=== PATIENT | female | born 1985 | race African-American/Black ===

== ENCOUNTER 2020-02-07 22:59 | Emergency (ER) | payer MEDICAID ==
[~2020-02-07] VITALS: Ht 172.7 cm; Wt 121.6 kg
[2020-02-07] MEDS ORDERED: NORVASC5 M1 PO (23:30)
[2020-02-07] MEDS ORDERED: PROZAC20 M1 PO (23:30)
[2020-02-07] MEDS ORDERED: LISINOPRIL20 MG PO (23:30)
[2020-02-07] MEDS ORDERED: ZOFRAN ODT4 MG PO (23:31)
[2020-02-07] MEDS ORDERED: REGLAN 10 MG TA10 MG PO (23:31)
[2020-02-08 00:36] LABS: URINE CLARITY CLOUDY; URINE COLOR RED
[2020-02-08 00:37] LABS: URINE BILIRUBIN 1+ (Negative); URINE BLOOD 3+ (Negative); URINE GLUCOSE-RANDOM* NEGATIVE (Negative); URINE KETONES 3+ (Negative)
[2020-02-08 00:38] LABS: URINE LEUKOCYTES-REFLEX TRACE (Negative); URINE NITRITE-REFLEX POSITIVE (Negative); URINE PROTEIN (DIPSTICK) 3+ (Negative); URINE UROBILINOGEN 0.2 E.U./dl (0.2-1.0)
[2020-02-08 00:40] LABS: BACTERIA-REFLEX 1-9 Few /HPF (None Seen); SQUAMOUS 4-10 Moderate /LPF (0-3); URINE RBC >20 Many /HPF (0-2); URINE WBC-REFLEX 0-5 Rare /HPF (0-5)
[2020-02-08 00:41] LABS: CASTS None Seen /LPF (None Seen); CRYSTALS None Seen /LPF (None Seen); MUCUS 4-6 Moderate strn/LPF (None Seen)
[2020-02-08 00:48] LABS: ABSOLUTE NEUTROPHILS 5.2 thou/uL (1.4-8.2); BASOPHILS 0.2 % (0.0-2.0); HEMATOCRIT 27.9 % (37.0-47.0); HEMOGLOBIN 8.6 gm/dL (12.0-15.0); RBC 3.89 mil/uL (4.20-5.00); WBC 6.4 thou/uL (4.0-11.0)
[2020-02-08 00:50] LABS: EOSINOPHILS 0.4 % (0.0-3.0); LYMPHOCYTES 15.1 % (24.0-44.0); MCHC 30.7 g/dL (28.0-37.0); MCV 71.8 fL (80.0-100.0); MONOCYTES 3.3 % (1.0-8.0); PLATELET COUNT 293 thou/uL (150-400); RDW 18.5 % (10.5-14.5)
[2020-02-08] MEDS ORDERED: NORCO 5-325 TA1 EAC2 PO (02:43)
[2020-02-08 03:31] VITALS: BP 173/116
== END 2020-02-08 03:32 | disposition home or self-care (01) ==
LOC: ER 22:59
PROVIDERS: Emergency Medicine
DX: K31.84 Gastroparesis (principal); E86.0 Dehydration; E88.89 Other specified metabolic disorders; D50.8 Other iron deficiency anemias; Z79.899 Other long term (current) drug therapy

== ENCOUNTER 2020-02-09 15:37 | Emergency (ER) | payer MEDICAID ==
[~2020-02-09] VITALS: Ht 172.7 cm; Wt 117.9 kg
[~2020-02-09 15:37] MED LIST: LISINOPRIL20 MG PO; NORCO 5-325 TA1 EAC2 PO; NORVASC5 M1 PO; PROZAC20 M1 PO; REGLAN 10 MG TA10 MG PO; ZOFRAN ODT4 MG PO
[2020-02-09 16:41] LABS: ABSOLUTE NEUTROPHILS 3.8 thou/uL (1.4-8.2); BASOPHILS 0.9 % (0.0-2.0); EOSINOPHILS 1.1 % (0.0-3.0); HEMATOCRIT 28.4 % (37.0-47.0); HEMOGLOBIN 8.5 gm/dL (12.0-15.0); MCH 21.3 pg (26.0-34.0); MCHC 29.9 g/dL (28.0-37.0); MCV 71.2 fL (80.0-100.0); MONOCYTES 6.3 % (1.0-8.0); PLATELET COUNT 350 thou/uL (150-400); POLYS 68.7 % (36.0-66.0); RBC 3.99 mil/uL (4.20-5.00); WBC 5.6 thou/uL (4.0-11.0)
[2020-02-09 16:49] LABS: CALCIUM 9.4 mg/dL (8.5-10.1); CREATININE 0.8 mg/dL (0.6-1.0); POTASSIUM 3.5 mmol/L (3.5-5.1)
[2020-02-09 16:52] LABS: ALBUMIN 3.5 g/dL (3.4-5.0); TOTAL BILIRUBIN 0.5 mg/dL (0.2-1.0); TOTAL PROTEIN 7.5 g/dL (6.4-8.2)
[2020-02-09 17:16] VITALS: BP 182/111
[2020-02-09 17:42] LABS: ANISOCYTOSIS 1+
[2020-02-09 17:43] LABS: LARGE PLATELETS OCCASIONAL; POLYCHROMASIA OCCASIONAL; TARGET CELLS OCCASIONAL
== END 2020-02-09 17:17 | disposition home or self-care (01) ==
LOC: ER 15:37
PROVIDERS: Emergency Medicine
DX: R10.13 Epigastric pain (principal); R11.2 Nausea with vomiting, unspecified; I10 Essential (primary) hypertension; E11.9 Type 2 diabetes mellitus without complications; Z79.899 Other long term (current) drug therapy